=== PATIENT | female | born 2005 | race Two or more races ===

== ENCOUNTER 2024-06-17 12:55 | Observation (INO) ==
--- NOTE | 2024-06-17 13:07 | DR.SEIZA ---
HPI Time Seen Time Seen by Provider: 06/17/24 13:07 PMH PMH Past Medical History: Seizures Past Surgical History: Yes Surgical History: Tonsillectomy PE Vital Signs Vitals: Vital Signs Temperature 97.9 F Pulse Rate 86 Pulse Rate 87 Pulse Rate 93 Pulse Rate 97 Pulse Rate 104 Pulse Rate 93 Pulse Rate 95 Pulse Rate 111 Pulse Rate 111 Pulse Rate 115 Pulse Rate 111 Pulse Rate 119 Pulse Rate 105 Pulse Rate 118 Pulse Rate 118 Pulse Rate 136 Pulse Rate 140 Pulse Rate 143 Pulse Rate 146 Respiratory Rate 13 Respiratory Rate 13 Respiratory Rate 14 Respiratory Rate 16 Respiratory Rate 15 Respiratory Rate 17 Respiratory Rate 15 Respiratory Rate 17 Respiratory Rate 20 Respiratory Rate 15 Respiratory Rate 14 Respiratory Rate 15 Respiratory Rate 15 Respiratory Rate 15 Respiratory Rate 26 Respiratory Rate 20 Respiratory Rate 19 Respiratory Rate 22 Blood Pressure 112/62 Blood Pressure 137/89 Blood Pressure 137/89 Blood Pressure 141/93 Blood Pressure 115/72 Blood Pressure 115/72 Blood Pressure 133/69 Blood Pressure 113/59 Blood Pressure 128/68 Blood Pressure 128/65 O2 Sat by Pulse Oximetry 95 O2 Sat by Pulse Oximetry 95 O2 Sat by Pulse Oximetry 91 O2 Sat by Pulse Oximetry 92 O2 Sat by Pulse Oximetry 95 O2 Sat by Pulse Oximetry 98 O2 Sat by Pulse Oximetry 96 O2 Sat by Pulse Oximetry 84 O2 Sat by Pulse Oximetry 81 O2 Sat by Pulse Oximetry 77 O2 Sat by Pulse Oximetry 88 O2 Sat by Pulse Oximetry 86 O2 Sat by Pulse Oximetry 86 O2 Sat by Pulse Oximetry 86 O2 Sat by Pulse Oximetry 95 O2 Sat by Pulse Oximetry 93 ROR Labs Reviewed 06/17/24 13:48 06/17/24 13:48 Laboratory: WBC 11.0 X10^3/uL (3.6-10.0) H 06/17/24 13:48 RBC 4.91 X10^6/uL (3.5-5.4) 06/17/24 13:48 Hgb 13.9 g/dL (12.0-16.0) 06/17/24 13:48 Hct 40.9 % (36.0-47.0) 06/17/24 13:48 MCV 83.2 fL (80.0-100.0) 06/17/24 13:48 MCH 28.3 pg (27.0-34.0) 06/17/24 13:48 MCHC 34.0 g/dL (33.0-35.0) 06/17/24 13:48 RDW 14.2 % (11.6-16.5) 06/17/24 13:48 Plt Count 293 X10^3/uL (150.0-450.0) 06/17/24 13:48 MPV 10.0 fL (7.4-11.0) 06/17/24 13:48 Neut % (Auto) 76.0 % (42.0-75.0) H 06/17/24 13:48 Lymph % (Auto) 13.4 % (21.0-51.0) L 06/17/24 13:48 [place] % (Auto) 10.1 % (0.0-13.0) 06/17/24 13:48 Eos % (Auto) 0.2 % (0.9-2.9) L 06/17/24 13:48 Baso % (Auto) 0.3 % (0.2-1.0) 06/17/24 13:48 Neut # (Auto) 8.4 x10^3/uL (2.2-4.8) H 06/17/24 13:48 Lymph # (Auto) 1.5 X10^3/uL (1.3-2.9) 06/17/24 13:48 [place] # (Auto) 1.1 x10^3/uL (0.3-0.8) H 06/17/24 13:48 Eos # (Auto) 0.0 x10^3/uL (0.0-0.2) 06/17/24 13:48 Baso # (Auto) 0.0 X10^3/uL (0.0-0.1) 06/17/24 13:48 Absolute Nucleated RBC 0.0 /100WBC 06/17/24 13:48 Sodium 143 mmol/L (136-145) 06/17/24 13:48 Corrected Sodium 143 mmol/L (136-145) 06/17/24 13:48 Potassium 3.3 mmol/L (3.5-5.1) L 06/17/24 13:48 Chloride 104 mmol/L (98-107) 06/17/24 13:48 Carbon Dioxide 26.4 mmol/L (21-32) 06/17/24 13:48 BUN 17 mg/dL (7-18) 06/17/24 13:48 Creatinine 1.32 mg/dL (0.55-1.02) H 06/17/24 13:48 Est GFR (MDRD) Af Amer > 60 (>60) 06/17/24 13:48 Est GFR (MDRD) Non-Af 55 (>60) L 06/17/24 13:48 Glucose 113 mg/dL (65-99) H 06/17/24 13:48 Lactic Acid 0.6 mmol/L (0.4-2.0) 06/17/24 16:30 Calcium 9.2 mg/dL (8.5-10.1) 06/17/24 13:48 Corrected Calcium TNP 06/17/24 13:48 Total Bilirubin 0.30 mg/dL (0.2-1.0) 06/17/24 13:48 AST 23 Units/L (15-37) 06/17/24 13:48 ALT 32 Units/L (12-78) 06/17/24 13:48 Alkaline Phosphatase 75 Units/L (46-116) 06/17/24 13:48 Total Protein 8.4 g/dL (6.4-8.2) H 06/17/24 13:48 Albumin 4.1 g/dL (3.4-5.0) 06/17/24 13:48 Globulin 4.3 g/dL (2.5-4.5) 06/17/24 13:48 Albumin/Globulin Ratio 1.0 Ratio (1.1-2.1) L 06/17/24 13:48 Amylase 37 Units/L (25-115) 06/17/24 13:48 Lipase 49 Units/L (16-77) 06/17/24 13:48 Specimen Type Catherized urine 06/17/24 15:08 Urine Color Yellow (YELLOW) 06/17/24 15:08 Urine Appearance Hazy (CLEAR) 06/17/24 15:08 Urine pH 6.0 (5.0 - 8.0) 06/17/24 15:08 Ur Specific [place] 1.020 (1.000-1.030) 06/17/24 15:08 Urine Protein 2+ (NEGATIVE) 06/17/24 15:08 Urine Glucose (UA) Negative (NEGATIVE) 06/17/24 15:08 Urine Ketones 1+ (NEGATIVE) 06/17/24 15:08 Urine Blood 1+ (NEGATIVE) 06/17/24 15:08 Urine Nitrite Negative (NEGATIVE) 06/17/24 15:08 Urine Bilirubin Negative (NEGATIVE) 06/17/24 15:08 Urine Urobilinogen Normal (NORMAL) 06/17/24 15:08 Ur Leukocyte Esterase 1+ (NEGATIVE) 06/17/24 15:08 Urine RBC 0-2 /HPF (0-3) 06/17/24 15:08 Urine WBC 3-5 /HPF (0-5) 06/17/24 15:08 Ur Squamous Epith Cells Few /HPF (NEGATIVE) 06/17/24 15:08 Urine Bacteria Negative /HPF (NEGATIVE) 06/17/24 15:08 Urine Mucus Rare /HPF (NEGATIVE) 06/17/24 15:08 Ur Culture Indicated? No/not indicated 06/17/24 15:08 Gastric Fluid pH 3 06/17/24 13:25 Gastric Occult Blood Positive (NEGATIVE) A 06/17/24 13:25 Opioid Opioid Risk Tool Age (Azael box if 16-45): No History of Preadolescent Sexual Abuse: No Total: 0 Total Score Risk Category: Low Risk Copyright: Jorge AREVALO predicting aberrant behaviors Discharge Plan Discharge Plan Patient Disposition: 01 HOME, SELF-CARE Condition: Stable Prescriptions: No Action quetiapine 25 mg tablet 75 mg PO QPM lamotrigine 100 mg tablet 100 mg PO BID clonazepam 2 mg tablet,disintegrating 2 mg PO PRN PRN diazepam 12.5-15-17.5-20 mg kit 20 mg SD PRN PRN Fycompa 8 mg tablet 8 mg PO QPM clonazepam 0.5 mg tablet 0.5 mg PO BID Rx Instructions: 1 TABLET AT MIDDAY AND 1 TABLET AT NIGHT folic acid 1 mg tablet 1 mg PO QDAY clobazam 10 mg tablet 5 mg PO QAM hyoscyamine sulfate [Levsin/SL] 0.125 mg tablet, sublingual 0.125 mg sublingual TID PRNQty: 20 0RF ondansetron 4 mg tablet,disintegrating 4 mg PO Q8H PRNQty: 20 0RF Health Concerns: Post Hospitalization: new medications and changes needed to prevent readmission or further decline. Pt educated and given instructions on all concerns. Plan of Treatment: Continue with present treatment and follow up plan. Pt is to keep follow up appointment as instructed and take medications as ordered. Orders to Discharge Patient Discharge Orders: Transfer (Routine); Ordered 06/17/24 Ordered By: ROB LWARENCE Follow ups/Referrals Follow ups/Referrals: [facility],None [Primary Care Provider] - 3 days Instructions Stand Alone Forms: Post Hospital Follow Up Care
[2024-06-17] MEDS: ATIVAN INJ 2 MG VIAL IVP ONE (13:33)
[2024-06-17] MEDS: PROTONIX INJ 40 MG VIAL IVP ONE (13:33)
[2024-06-17] MEDS: ZOFRAN INJ 4 MG VIAL IVP ONE (13:34)
[2024-06-17] MEDS: NS 1,000 ML IV 1,000 ML IV ONE (13:34)
[2024-06-17 14:11] LABS: GASTRIC OCCULT BLOOD POSITIVE (NEGATIVE); PH,GASTRIC FLUID 3
[2024-06-17 14:24] LABS: BASOPHILS % (AUTO) 0.3 % (0.2-1.0); EOSINOPHILS % (AUTO) 0.2 % (0.9-2.9); HEMATOCRIT 40.9 % (36.0-47.0); HEMOGLOBIN 13.9 g/dL (12.0-16.0); LYMPHOCYTES # (AUTO) 1.5 X10^3/uL (1.3-2.9); LYMPHOCYTES % (AUTO) 13.4 % (21.0-51.0); MEAN CORPUSCULAR HEMOGLOBIN 28.3 pg (27.0-34.0); MEAN CORPUSCULAR VOLUME 83.2 fL (80.0-100.0); MONOCYTES # (AUTO) 1.1 x10^3/uL (0.3-0.8); MONOCYTES % (AUTO) 10.1 % (0.0-13.0); NEUTROPHILS # (AUTO) 8.4 x10^3/uL (2.2-4.8); PLATELET COUNT 293 X10^3/uL (150.0-450.0); RED BLOOD COUNT 4.91 X10^6/uL (3.5-5.4); RED CELL DISTRIBUTION WIDTH 14.2 % (11.6-16.5)
[2024-06-17 14:44] LABS: ALANINE AMINOTRANSFERASE 32 Units/L (12-78); ALBUMIN 4.1 g/dL (3.4-5.0); ALKALINE PHOSPHATASE 75 Units/L (46-116); AMYLASE 37 Units/L (25-115); ASPARTATE AMINO TRANSFERASE 23 Units/L (15-37); BLOOD UREA NITROGEN 17 mg/dL (7-18); CALCIUM 9.2 mg/dL (8.5-10.1); CARBON DIOXIDE 26.4 mmol/L (21-32); CHLORIDE 104 mmol/L (98-107); COR NA(FOR HYPERGLY) 143 mmol/L (136-145); CREATININE 1.32 mg/dL (0.55-1.02); GLUCOSE 113 mg/dL (65-99); LIPASE 49 Units/L (16-77); POTASSIUM 3.3 mmol/L (3.5-5.1); SODIUM 143 mmol/L (136-145); TOTAL PROTEIN 8.4 g/dL (6.4-8.2); eGFR NON BLACK RACES 55 (>60)
--- NOTE | 2024-06-17 15:08 | CT ---
EXAMINATION:ABDOMEN/PELVIS W/O CONHISTORY:ABD PAIN; .COMPARISON:None.TECHNIQUE:Unenhanced axial images were obtained through the abdomen and pelvis using renal stone protocol. Reformatted images were obtained as well. Lack of oral and IV contrast limits diagnostic sensitivityThe above CT scan was done with automated exposure control and the mA and kV was adjusted to obtain quality images according to patient size.FINDINGS:Lung bases: No acute findings.Liver: No acute finding or focal lesionGB/Biliary: No gallstones or dilated ductsSpleen: Normal size and densityPancreas: No acute findings. No pseudocyst or dilated ductAdrenal Glands: No massKidneys: No obstructing stone, hydronephrosis or solid lesionAbdominal aorta: Tapers normallyRetroperitoneum: No pathologically enlarged lymph nodesBowel: No thickened or dilated loops of bowel, free fluid, free air, pneumatosis or abscess. Large to moderate stool. Appendix not seen. No CT evidence for appendicitis or obstruction.Bladder/: Ureters and bladder unremarkable. Uterus and adnexal structures unremarkable for age. No pelvic or adnexal mass noted. Heterogeneous uterus which may represent a fibroid uterus.Osseous: Unremarkable with no acute finding or bony lesion.IMPRESSION:No acute intra-abdominal or intrapelvic process.No CT evidence for obstruction, appendicitis or obstructing stone. Constipation.THIS IS AN ELECTRONICALLY VERIFIED FINAL [id number]/2024 3:04 PM - Electronically signed by Fab Burns MD
[2024-06-17 15:21] LABS: BILIRUBIN,URINE NEGATIVE (NEGATIVE); BLOOD/HEMOGLOBIN,URINE 1+ (NEGATIVE); GLUCOSE, URINE NEGATIVE (NEGATIVE); KETONES,URINE 1+ (NEGATIVE); LEUKOCYTE ESTERASE ,URINE 1+ (NEGATIVE); NITRITES,URINE NEGATIVE (NEGATIVE); PROTEIN,URINE 2+ (NEGATIVE); UROBILINOGEN,URINE NORMAL (NORMAL)
[2024-06-17 15:28] LABS: APPEARANCE,URINE HAZY (CLEAR); COLOR,URINE YELLOW (YELLOW)
[2024-06-17 15:29] LABS: BACTERIA,URINE NEGATIVE /HPF (NEGATIVE); RBC,URINE 0-2 /HPF (0-3); SQUAMOUS EPITHELIAL CELL,UR FEW /HPF (NEGATIVE)
[2024-06-17] MEDS: ROCEPHIN VIAL 1 GRAM 1 G in NS 100 ML IV 100 ML IV ONE (17:27)
[2024-06-17] MEDS ORDERED: ATIVAN INJ 2 MG VIAL IVP PRN (17:31)
[2024-06-17] MEDS ORDERED: ZOFRAN INJ 4 MG VIAL IVP PRN ×2 (18:11→19:42)
[2024-06-17] MEDS: NS 1,000 ML IV 1,000 ML IV SCH (20:05)
[2024-06-17] MEDS: ATIVAN INJ 2 MG VIAL IVP PRN (20:50)
[2024-06-17] MEDS: PROTONIX INJ 40 MG VIAL 80 MG in NS 100 ML IV 80 ML IV SCH (21:00)
[2024-06-17] MEDS: COLACE CAP 100 MG PO SCH (21:02)
[2024-06-18 04:07] LABS: BASOPHILS % (AUTO) 0.2 % (0.2-1.0); EOSINOPHILS # (AUTO) 0.1 x10^3/uL (0.0-0.2); EOSINOPHILS % (AUTO) 0.7 % (0.9-2.9); HEMATOCRIT 35.9 % (36.0-47.0); LYMPHOCYTES # (AUTO) 3.6 X10^3/uL (1.3-2.9); LYMPHOCYTES % (AUTO) 35.4 % (21.0-51.0); MEAN CORPUSCULAR HEMOGLOBIN 27.4 pg (27.0-34.0); MEAN CORPUSCULAR VOLUME 82.8 fL (80.0-100.0); MEAN PLATELET VOLUME 9.2 fL (7.4-11.0); MONOCYTES # (AUTO) 1.3 x10^3/uL (0.3-0.8); MONOCYTES % (AUTO) 12.6 % (0.0-13.0); NEUTROPHILS # (AUTO) 5.2 x10^3/uL (2.2-4.8); NEUTROPHILS % (AUTO) 51.1 % (42.0-75.0); PLATELET COUNT 238 X10^3/uL (150.0-450.0); RED BLOOD COUNT 4.34 X10^6/uL (3.5-5.4); RED CELL DISTRIBUTION WIDTH 13.9 % (11.6-16.5); WHITE BLOOD COUNT 10.1 X10^3/uL (3.6-10.0)
[2024-06-18 04:17] LABS: ALANINE AMINOTRANSFERASE 24 Units/L (12-78); ALBUMIN 3.4 g/dL (3.4-5.0); ALKALINE PHOSPHATASE 63 Units/L (46-116); ASPARTATE AMINO TRANSFERASE 24 Units/L (15-37); BLOOD UREA NITROGEN 13 mg/dL (7-18); CARBON DIOXIDE 27.3 mmol/L (21-32); CHLORIDE 105 mmol/L (98-107); CREATININE 0.98 mg/dL (0.55-1.02); GLUCOSE 78 mg/dL (65-99); POTASSIUM 3.1 mmol/L (3.5-5.1); SODIUM 141 mmol/L (136-145); eGFR NON BLACK RACES > 60 (>60)
[2024-06-18 04:18] LABS: HEMOGLOBIN 11.9 g/dL (12.0-16.0)
[2024-06-18] MEDS: NS 1,000 ML IV 1,000 ML ONE (04:39)
[2024-06-18] MEDS: ATIVAN INJ 2 MG VIAL ONE (04:40)
[2024-06-18] MEDS: ZOFRAN INJ 4 MG VIAL ONE (04:41)
[2024-06-18] MEDS: PROTONIX INJ 40 MG VIAL ONE (04:41)
[2024-06-18] MEDS ORDERED: CONSULT PHARMACY - POTASSIUM & MAGNESIUM XX SCH (05:00)
[2024-06-18] MEDS: DIPRIVAN VIAL 20 ML ONE (09:28)
[2024-06-18] MEDS: K-DUR TAB 20 MEQ PO SCH (13:14)
[2024-06-18] MEDS: MAG-OX TAB PO SCH (13:14)
[2024-06-18] MEDS: LAMICTAL TAB 100 MG PO SCH (13:23)
[2024-06-18] MEDS: CARAFATE PO SCH (13:26)
[2024-06-18] MEDS: K-DUR TAB 20 MEQ PO ONE (14:58)
--- NOTE | 2024-06-18 16:48 | DR.H&P ---
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 The patient has developed worsening constipation of the last few days with associated nausea vomiting and because of that she has not been able to take her antiepileptic pills. After getting to the ER today she vomited coffee-ground emesis and a Gastroccult was done that showed it was positive for blood. Because of this we elected to go ahead and admit the patient and consult general surgery for EGD along with starting IV Protonix twice daily and subset enemas to help relieve the constipation. Will follow-up with general surgery recommendations and EGD results. Will also plan on doing a colonoscopy after we get the patient's spouse plans. We will use as needed IV Valium or Ativan for breakthrough seizures in the meantime. 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, cerebral palsy, chronic failure to thrive chronic bedbound chronic mentally handicapped Past Surgical History Surgical History: Tonsillectomy and Other Family History Family Medical History: Diabetes Mellitus, Heart Failure and Hypertension Social History Does any household member use tobacco: No Alcohol Use: None Drug Use: None Medications Home Medications: Home Medications Medication Instructions Recorded Confirmed Type clobazam 10 mg tablet 5 mg PO QAM 06/16/24 06/17/24 History clonazepam 0.5 mg tablet 0.5 mg PO BID 06/16/24 06/17/24 History clonazepam 2 mg disintegrating 2 mg PO PRN PRN 06/16/24 06/17/24 History tablet diazepam 12.5 mg-15 mg-17.5 mg-20 20 mg NC PRN PRN 06/16/24 06/17/24 History mg rectal kit folic acid 1 mg tablet 1 mg PO QDAY 06/16/24 06/17/24 History lamotrigine 100 mg tablet 100 mg PO BID 06/16/24 06/17/24 History perampanel 8 mg tablet (Fycompa) 8 mg PO QPM 06/16/24 06/17/24 History quetiapine 25 mg tablet 75 mg PO QPM 06/16/24 06/17/24 History Allergies Allergies Allergy/AdvReac Type Severity Reaction Status Date / Time No Known Allergies Allergy Verified 06/16/24 01:12 Labs 06/18/24 03:47 06/18/24 03:47 Labs: Laboratory WBC 10.1 X10^3/uL (3.6-10.0) H 06/18/24 03:47 RBC 4.34 X10^6/uL (3.5-5.4) 06/18/24 03:47 Hgb 11.9 g/dL (12.0-16.0) L D 06/18/24 03:47 Hct 35.9 % (36.0-47.0) L 06/18/24 03:47 MCV 82.8 fL (80.0-100.0) 06/18/24 03:47 MCH 27.4 pg (27.0-34.0) 06/18/24 03:47 MCHC 33.0 g/dL (33.0-35.0) 06/18/24 03:47 RDW 13.9 % (11.6-16.5) 06/18/24 03:47 Plt Count 238 X10^3/uL (150.0-450.0) 06/18/24 03:47 MPV 9.2 fL (7.4-11.0) 06/18/24 03:47 Neut % (Auto) 51.1 % (42.0-75.0) 06/18/24 03:47 Lymph % (Auto) 35.4 % (21.0-51.0) 06/18/24 03:47 [place] % (Auto) 12.6 % (0.0-13.0) 06/18/24 03:47 Eos % (Auto) 0.7 % (0.9-2.9) L 06/18/24 03:47 Baso % (Auto) 0.2 % (0.2-1.0) 06/18/24 03:47 Neut # (Auto) 5.2 x10^3/uL (2.2-4.8) H 06/18/24 03:47 Lymph # (Auto) 3.6 X10^3/uL (1.3-2.9) H 06/18/24 03:47 [place] # (Auto) 1.3 x10^3/uL (0.3-0.8) H 06/18/24 03:47 Eos # (Auto) 0.1 x10^3/uL (0.0-0.2) 06/18/24 03:47 Baso # (Auto) 0.0 X10^3/uL (0.0-0.1) 06/18/24 03:47 Absolute Nucleated RBC 0.0 /100WBC 06/18/24 03:47 Sodium 141 mmol/L (136-145) 06/18/24 03:47 Corrected Sodium TNP 06/18/24 03:47 Potassium 3.1 mmol/L (3.5-5.1) L 06/18/24 03:47 Chloride 105 mmol/L (98-107) 06/18/24 03:47 Carbon Dioxide 27.3 mmol/L (21-32) 06/18/24 03:47 BUN 13 mg/dL (7-18) 06/18/24 03:47 Creatinine 0.98 mg/dL (0.55-1.02) 06/18/24 03:47 Est GFR (MDRD) Af Amer > 60 (>60) 06/18/24 03:47 Est GFR (MDRD) Non-Af > 60 (>60) 06/18/24 03:47 Glucose 78 mg/dL (65-99) 06/18/24 03:47 Lactic Acid 0.6 mmol/L (0.4-2.0) 06/17/24 16:30 Calcium 8.0 mg/dL (8.5-10.1) L 06/18/24 03:47 Corrected Calcium TNP 06/18/24 03:47 Magnesium 1.8 mg/dL (2.0-2.9) L 06/18/24 03:47 Total Bilirubin 0.50 mg/dL (0.2-1.0) 06/18/24 03:47 AST 24 Units/L (15-37) 06/18/24 03:47 ALT 24 Units/L (12-78) 06/18/24 03:47 Alkaline Phosphatase 63 Units/L (46-116) 06/18/24 03:47 Total Protein 7.0 g/dL (6.4-8.2) 06/18/24 03:47 Albumin 3.4 g/dL (3.4-5.0) 06/18/24 03:47 Globulin 3.6 g/dL (2.5-4.5) 06/18/24 03:47 Albumin/Globulin Ratio 0.9 Ratio (1.1-2.1) L 06/18/24 03:47 Amylase 37 Units/L (25-115) 06/17/24 13:48 Lipase 49 Units/L (16-77) 06/17/24 13:48 Specimen Type Catherized urine 06/17/24 15:08 Urine Color Yellow (YELLOW) 06/17/24 15:08 Urine Appearance Hazy (CLEAR) 06/17/24 15:08 Urine pH 6.0 (5.0 - 8.0) 06/17/24 15:08 Ur Specific [place] 1.020 (1.000-1.030) 06/17/24 15:08 Urine Protein 2+ (NEGATIVE) 06/17/24 15:08 Urine Glucose (UA) Negative (NEGATIVE) 06/17/24 15:08 Urine Ketones 1+ (NEGATIVE) 06/17/24 15:08 Urine Blood 1+ (NEGATIVE) 06/17/24 15:08 Urine Nitrite Negative (NEGATIVE) 06/17/24 15:08 Urine Bilirubin Negative (NEGATIVE) 06/17/24 15:08 Urine Urobilinogen Normal (NORMAL) 06/17/24 15:08 Ur Leukocyte Esterase 1+ (NEGATIVE) 06/17/24 15:08 Urine RBC 0-2 /HPF (0-3) 06/17/24 15:08 Urine WBC 3-5 /HPF (0-5) 06/17/24 15:08 Ur Squamous Epith Cells Few /HPF (NEGATIVE) 06/17/24 15:08 Urine Bacteria Negative /HPF (NEGATIVE) 06/17/24 15:08 Urine Mucus Rare /HPF (NEGATIVE) 06/17/24 15:08 Ur Culture Indicated? No/not indicated 06/17/24 15:08 Gastric Fluid pH 3 06/17/24 13:25 Gastric Occult Blood Positive (NEGATIVE) A 10/28/24 13:25 Review of Systems Constitutional: Sweats and Weakness Eyes: No Symptoms Reported ENT: No Symptoms Reported Respiratory: No Symptoms Reported Cardiovascular: No Symptoms Reported Gastrointestinal: Nausea, Vomiting and Other (Coffee-ground emesis) Genitourinary: No Symptoms Reported Musculoskeletal: No Symptoms Reported Skin: No Symptoms Reported Neurological: Weakness, Incoordination, Confusion and Seizures Physical Exam Vital Signs: Vital Signs Temperature 98.2 F Temperature 97.5 F Temperature 97.7 F Temperature 97.5 F Temperature 97.5 F Temperature 97.5 F Temperature 97.1 F Pulse Rate [Right Brachial] 101 Pulse Rate [Right Brachial] 87 Pulse Rate [Right Brachial] 77 Pulse Rate [Right Brachial] 77 Pulse Rate [Right Brachial] 75 Pulse Rate [Right Brachial] 64 Pulse Rate [Right Brachial] 69 Pulse Rate 72 Respiratory Rate 21 Respiratory Rate 21 Respiratory Rate 19 Respiratory Rate 19 Respiratory Rate 20 Respiratory Rate 18 Respiratory Rate 18 Respiratory Rate 18 Blood Pressure [Right Arm] 103/52 Blood Pressure [Right Arm] 118/66 Blood Pressure [Right Arm] 130/79 Blood Pressure [Right Arm] 126/75 Blood Pressure [Right Arm] 135/87 Blood Pressure [Right Arm] 114/55 Blood Pressure [Right Arm] 118/60 Blood Pressure 113/58 O2 Sat by Pulse Oximetry 94 O2 Sat by Pulse Oximetry 99 O2 Sat by Pulse Oximetry 99 O2 Sat by Pulse Oximetry 99 O2 Sat by Pulse Oximetry 100 O2 Sat by Pulse Oximetry 100 O2 Sat by Pulse Oximetry 100 O2 Sat by Pulse Oximetry 97 Oriented: Not Oriented Eyes: Normal Ear: Normal Respiratory: Clear Throughout Cardiovascular: Normal Auscultation: Bowel Sounds: Decreased Palpation: Normal Skin: Normal Musculoskeletal: Normal Psychiatric: Other Mood Description: Calm Affect: Normal Speech Pattern: Appropriate Assessment/Plan (1) Cerebral palsy: Status: Acute Plan: Supportive care. (2) Nausea and vomiting in adult patient: Status: Acute Plan: IV Zofran as needed. (3) Angelman syndrome: Status: Acute (4) Coffee ground emesis: Status: Acute Plan: IV Protonix 40 mg IV twice daily. Consult general surgery for EGD. Avoid NSAIDs and blood thinners this time. (5) Epilepsy: Status: Acute Plan: We will plan on using Ativan 0.5 to 1 mg IV every 8-12 hours as needed for breakthrough seizures through the night. Hopefully after we get the patient's bowels moving to a soapsuds enemas we will resume her regular home antiepileptic meds if she can take them without getting nausea and vomiting. (6) Chronic constipation: Status: Acute Plan: Soapsuds enema this evening and will repeat x 1 if needed. Reevaluate tomorrow morning. 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 The patient may benefit from referral to gastroenterology next week given her current situation improved. Review H&P Reviewed: Yes Patient was examined?: Yes
--- NOTE | 2024-06-18 16:57 | PCM.PROG ---
Progress Note Progress Note for Day of Date of Exam: 06/18/24 Subjective Subjective: During rounds this morning I spoke with the patient's mother and she states that she has just recently fell back asleep but has been awake and alert through the night. She asked if we could resume her quetiapine at bedtime to help her sleep because she does not get that she does stay awake all night long. I informed mother that that would be fine we will be glad to get her medication resumed today along with her antiepileptic medication. She is scheduled to go for EGD around noon today and I see that Dr. Rosenbaum has already done the scope and it showed that she had erosive gastritis of the fundus and antrum but no ulcers and no active bleeds. She is currently still receiving IV Protonix 40 mg twice daily and which we will continue at this time. There is subset enemas that she received last night x 2 has not done a lot to help relieve her constipation so we will see what Dr. Rosenbaum orders to get a good bowel cleanse. He wants to advance her diet and let the erosive gastritis heal up some so we will plan on doing another subset this afternoon. Prior to that we will do a KUB and plan on repeating it tomorrow morning to see how, while with her constipation resolution. She is hypomagnesemic this morning as well as hypokalemic so we will initiate potassium replacement protocol and correct these abnormal electrolytes. Her dehydration has resolved since yesterday. I reviewed the CT scan of her abdomen pelvis when she was admitted yesterday and I see that showed constipation but no acute other problems. She did have a little low-grade fever last night and she is currently covered with IV Rocephin and because she does have some underlying infection somewhere. Urinalysis. It does not show that she has a urinary tract infection at this time. Repeat routine labs tomorrow morning. Past Medical Family Social History Allergies: Allergies No Known Allergies Allergy (Verified 06/16/24 01:12) Review of Systems ROS: No change since H&P Vital Signs and I&O's Vital Signs: Vital Signs Temperature 98.2 F Temperature 98.2 F Temperature 97.5 F Temperature 97.7 F Temperature 97.5 F Temperature 97.5 F Temperature 97.5 F Temperature 97.1 F Pulse Rate [Right Brachial] 101 Pulse Rate [Right Brachial] 101 Pulse Rate [Right Brachial] 87 Pulse Rate [Right Brachial] 77 Pulse Rate [Right Brachial] 77 Pulse Rate [Right Brachial] 75 Pulse Rate [Right Brachial] 64 Pulse Rate [Right Brachial] 69 Pulse Rate 72 Respiratory Rate 21 Respiratory Rate 21 Respiratory Rate 21 Respiratory Rate 19 Respiratory Rate 19 Respiratory Rate 20 Respiratory Rate 18 Respiratory Rate 18 Respiratory Rate 18 Blood Pressure [Right Arm] 103/52 Blood Pressure [Right Arm] 103/52 Blood Pressure [Right Arm] 118/66 Blood Pressure [Right Arm] 130/79 Blood Pressure [Right Arm] 126/75 Blood Pressure [Right Arm] 135/87 Blood Pressure [Right Arm] 114/55 Blood Pressure [Right Arm] 118/60 Blood Pressure 113/58 O2 Sat by Pulse Oximetry 94 O2 Sat by Pulse Oximetry 94 O2 Sat by Pulse Oximetry 99 O2 Sat by Pulse Oximetry 99 O2 Sat by Pulse Oximetry 99 O2 Sat by Pulse Oximetry 100 O2 Sat by Pulse Oximetry 100 O2 Sat by Pulse Oximetry 100 O2 Sat by Pulse Oximetry 97 Intake and Output: Intake & Output 06/16/24 06/17/24 06/18/24 06/19/24 11:59 11:59 11:59 11:59 Intake Total 217 / 217 600 / 600 Balance 217 / 217 600 / 600 Physical Exam Oriented: Not Oriented Eyes: Normal Ear: Normal Respiratory: Normal Cardiovascular: Normal Auscultation: Bowel Sounds: Decreased Skin: Normal Musculoskeletal: Normal Psychiatric: Other Mood Description: Calm Affect: Normal Speech Pattern: Appropriate Laboratory and Diagnostics 06/18/24 03:47 06/18/24 03:47 Labs: Laboratory WBC 10.1 X10^3/uL (3.6-10.0) H 06/18/24 03:47 RBC 4.34 X10^6/uL (3.5-5.4) 06/18/24 03:47 Hgb 11.9 g/dL (12.0-16.0) L D 06/18/24 03:47 Hct 35.9 % (36.0-47.0) L 06/18/24 03:47 MCV 82.8 fL (80.0-100.0) 06/18/24 03:47 MCH 27.4 pg (27.0-34.0) 06/18/24 03:47 MCHC 33.0 g/dL (33.0-35.0) 06/18/24 03:47 RDW 13.9 % (11.6-16.5) 06/18/24 03:47 Plt Count 238 X10^3/uL (150.0-450.0) 06/18/24 03:47 MPV 9.2 fL (7.4-11.0) 06/18/24 03:47 Neut % (Auto) 51.1 % (42.0-75.0) 06/18/24 03:47 Lymph % (Auto) 35.4 % (21.0-51.0) 06/18/24 03:47 Gilmer % (Auto) 12.6 % (0.0-13.0) 06/18/24 03:47 Eos % (Auto) 0.7 % (0.9-2.9) L 06/18/24 03:47 Baso % (Auto) 0.2 % (0.2-1.0) 06/18/24 03:47 Neut # (Auto) 5.2 x10^3/uL (2.2-4.8) H 06/18/24 03:47 Lymph # (Auto) 3.6 X10^3/uL (1.3-2.9) H 06/18/24 03:47 Gilmer # (Auto) 1.3 x10^3/uL (0.3-0.8) H 06/18/24 03:47 Eos # (Auto) 0.1 x10^3/uL (0.0-0.2) 06/18/24 03:47 Baso # (Auto) 0.0 X10^3/uL (0.0-0.1) 06/18/24 03:47 Absolute Nucleated RBC 0.0 /100WBC 06/18/24 03:47 Sodium 141 mmol/L (136-145) 06/18/24 03:47 Corrected Sodium TNP 06/18/24 03:47 Potassium 3.1 mmol/L (3.5-5.1) L 06/18/24 03:47 Chloride 105 mmol/L (98-107) 06/18/24 03:47 Carbon Dioxide 27.3 mmol/L (21-32) 06/18/24 03:47 BUN 13 mg/dL (7-18) 06/18/24 03:47 Creatinine 0.98 mg/dL (0.55-1.02) 06/18/24 03:47 Est GFR (MDRD) Af Amer > 60 (>60) 06/18/24 03:47 Est GFR (MDRD) Non-Af > 60 (>60) 06/18/24 03:47 Glucose 78 mg/dL (65-99) 06/18/24 03:47 Lactic Acid 0.6 mmol/L (0.4-2.0) 06/17/24 16:30 Calcium 8.0 mg/dL (8.5-10.1) L 06/18/24 03:47 Corrected Calcium TNP 06/18/24 03:47 Magnesium 1.8 mg/dL (2.0-2.9) L 06/18/24 03:47 Total Bilirubin 0.50 mg/dL (0.2-1.0) 06/18/24 03:47 AST 24 Units/L (15-37) 06/18/24 03:47 ALT 24 Units/L (12-78) 06/18/24 03:47 Alkaline Phosphatase 63 Units/L (46-116) 06/18/24 03:47 Total Protein 7.0 g/dL (6.4-8.2) 06/18/24 03:47 Albumin 3.4 g/dL (3.4-5.0) 06/18/24 03:47 Globulin 3.6 g/dL (2.5-4.5) 06/18/24 03:47 Albumin/Globulin Ratio 0.9 Ratio (1.1-2.1) L 06/18/24 03:47 Amylase 37 Units/L (25-115) 06/17/24 13:48 Lipase 49 Units/L (16-77) 06/17/24 13:48 Specimen Type Catherized urine 06/17/24 15:08 Urine Color Yellow (YELLOW) 06/17/24 15:08 Urine Appearance Hazy (CLEAR) 06/17/24 15:08 Urine pH 6.0 (5.0 - 8.0) 06/17/24 15:08 Ur Specific Garrison 1.020 (1.000-1.030) 06/17/24 15:08 Urine Protein 2+ (NEGATIVE) 06/17/24 15:08 Urine Glucose (UA) Negative (NEGATIVE) 06/17/24 15:08 Urine Ketones 1+ (NEGATIVE) 06/17/24 15:08 Urine Blood 1+ (NEGATIVE) 06/17/24 15:08 Urine Nitrite Negative (NEGATIVE) 06/17/24 15:08 Urine Bilirubin Negative (NEGATIVE) 06/17/24 15:08 Urine Urobilinogen Normal (NORMAL) 06/17/24 15:08 Ur Leukocyte Esterase 1+ (NEGATIVE) 06/17/24 15:08 Urine RBC 0-2 /HPF (0-3) 06/17/24 15:08 Urine WBC 3-5 /HPF (0-5) 06/17/24 15:08 Ur Squamous Epith Cells Few /HPF (NEGATIVE) 06/17/24 15:08 Urine Bacteria Negative /HPF (NEGATIVE) 06/17/24 15:08 Urine Mucus Rare /HPF (NEGATIVE) 06/17/24 15:08 Ur Culture Indicated? No/not indicated 06/17/24 15:08 Gastric Fluid pH 3 06/17/24 13:25 Gastric Occult Blood Positive (NEGATIVE) A 06/17/24 13:25 Radiology Reviewed: Yes Plan (1) Cerebral palsy: Status: Acute Plan: Supportive care. (2) Nausea and vomiting in adult patient: Status: Acute Plan: IV Zofran as needed. (3) Angelman syndrome: Status: Acute (4) Coffee ground emesis: Status: Resolved Narrative Support Text: No further coffee-ground emesis since admission. Plan: IV Protonix 40 mg IV twice daily. Consult general surgery for EGD. Avoid NSAIDs and blood thinners this time. (5) Epilepsy: Status: Acute Plan: We will plan on using Ativan 0.5 to 1 mg IV every 8-12 hours as needed for breakthrough seizures through the night. Hopefully after we get the patient's bowels moving to a soapsuds enemas we will resume her regular home antiepileptic meds if she can take them without getting nausea and vomiting. (6) Chronic constipation: Status: Acute Plan: Soapsuds enema this evening and will repeat x 1 if needed. Reevaluate tomorrow morning. 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 The patient may benefit from referral to gastroenterology next week given her current situation improved. (8) Hypokalemia: Status: Acute Plan: Initiate potassium replacement protocol. (9) Hypomagnesemia: Status: Acute Plan: With magnesium oxide or magnesium sulfate if needed. (10) Dehydration: Status: Resolved Plan: Continue slow IV hydration.
--- NOTE | 2024-06-18 17:56 | RAD ---
EXAM:KUBHISTORY:Constipation and abdominal discomfortCOMPARISON:CT exam June 17, 2024TECHNIQUE:Abdominal KUB one-viewFINDINGS:There is a moderate volume of stool noted in the transverse and descending portions of the colon. Mildly distended small bowel loop in the left upper abdomen. No gross free air.IMPRESSION:Moderate volume of colonic stool suggests constipation. No sign of bowel obstruction or gross free air.THIS IS AN ELECTRONICALLY VERIFIED FINAL [id number] 5:53 PM - Electronically signed by Shemar Gibbs MD
[2024-06-18] MEDS: PROTONIX INJ 40 MG VIAL IVP SCH (20:32)
[2024-06-18] MEDS: SEROquel TAB 25 mg PO SCH (20:34)
[2024-06-18] MEDS: PATIENT'S HOME MEDICATION PO SCH ×2 (23:04→23:05)
[2024-06-19 06:21] LABS: BASOPHILS % (AUTO) 0.3 % (0.2-1.0); EOSINOPHILS # (AUTO) 0.2 x10^3/uL (0.0-0.2); EOSINOPHILS % (AUTO) 2.4 % (0.9-2.9); HEMATOCRIT 39.4 % (36.0-47.0); HEMOGLOBIN 13.2 g/dL (12.0-16.0); LYMPHOCYTES # (AUTO) 2.9 X10^3/uL (1.3-2.9); MEAN CORPUSCULAR HEMOGLOBIN 28.2 pg (27.0-34.0); MEAN CORPUSCULAR HGB CONC 33.4 g/dL (33.0-35.0); MEAN CORPUSCULAR VOLUME 84.4 fL (80.0-100.0); MEAN PLATELET VOLUME 9.8 fL (7.4-11.0); MONOCYTES # (AUTO) 0.9 x10^3/uL (0.3-0.8); MONOCYTES % (AUTO) 10.5 % (0.0-13.0); NEUTROPHILS # (AUTO) 4.9 x10^3/uL (2.2-4.8); NEUTROPHILS % (AUTO) 54.8 % (42.0-75.0); PLATELET COUNT 206 X10^3/uL (150.0-450.0); RED BLOOD COUNT 4.67 X10^6/uL (3.5-5.4); WHITE BLOOD COUNT 8.9 X10^3/uL (3.6-10.0)
[2024-06-19 06:35] LABS: ALANINE AMINOTRANSFERASE 23 Units/L (12-78); ALBUMIN 3.2 g/dL (3.4-5.0); ALKALINE PHOSPHATASE 63 Units/L (46-116); ASPARTATE AMINO TRANSFERASE 25 Units/L (15-37); BLOOD UREA NITROGEN 4 mg/dL (7-18); CALCIUM 8.3 mg/dL (8.5-10.1); CARBON DIOXIDE 27.5 mmol/L (21-32); CHLORIDE 111 mmol/L (98-107); COR CA(FOR HYPOALB) 8.9 mg/dL (8.5-10.1); CREATININE 0.77 mg/dL (0.55-1.02); GLUCOSE 68 mg/dL (65-99); POTASSIUM 3.3 mmol/L (3.5-5.1); SODIUM 146 mmol/L (136-145); TOTAL PROTEIN 6.9 g/dL (6.4-8.2); eGFR NON BLACK RACES > 60 (>60)
[2024-06-19] MEDS: NS 1,000 ML IV 1,000 ML ONE (07:31)
[2024-06-19] MEDS: MAG-OX TAB ONE (07:31)
--- NOTE | 2024-06-19 07:33 | RAD ---
EXAM:KUBHISTORY:ConstipationCOMPARISON: .br.br.br.br.br.br nonspecific and nonobstructive. No abnormal masses or abnormal calcifications are identified. Moderate stool is present slightly decreased from the prior examination. Regional skeleton is intact.IMPRESSION:Unremarkable KUBTHIS IS AN ELECTRONICALLY VERIFIED FINAL [id number] 7:30 AM - Electronically signed by Fletcher Swan MD
[2024-06-19] MEDS: PATIENT'S HOME MEDICATION PO SCH (08:32)
[2024-06-19] MEDS: SUPREP BOWEL PREP KIT PO SCH (13:57)
[2024-06-19] MEDS: SUPREP BOWEL PREP KIT PO ONE (14:08)
[2024-06-19] MEDS: CEREBYX IV SCH (20:59)
[2024-06-19] MEDS: NS IV SCH (20:59)
[2024-06-19 21:09] VITALS: BMI 31.1
[2024-06-19] MEDS: ATIVAN INJ 2 MG VIAL IVP PRN (23:36)
[2024-06-20] MEDS: HIBICLENS WASH EXT ONE (04:38)
[2024-06-20] MEDS: NOZIN NASAL SANITIZER TP ONE (05:06)
[2024-06-20 06:34] LABS: BASOPHILS % (AUTO) 0.5 % (0.2-1.0); EOSINOPHILS # (AUTO) 0.2 x10^3/uL (0.0-0.2); EOSINOPHILS % (AUTO) 2.6 % (0.9-2.9); HEMATOCRIT 36.1 % (36.0-47.0); HEMOGLOBIN 11.8 g/dL (12.0-16.0); LYMPHOCYTES # (AUTO) 3.3 X10^3/uL (1.3-2.9); LYMPHOCYTES % (AUTO) 44.3 % (21.0-51.0); MEAN CORPUSCULAR HEMOGLOBIN 27.3 pg (27.0-34.0); MEAN CORPUSCULAR HGB CONC 32.7 g/dL (33.0-35.0); MEAN CORPUSCULAR VOLUME 83.5 fL (80.0-100.0); MEAN PLATELET VOLUME 10.6 fL (7.4-11.0); MONOCYTES # (AUTO) 0.8 x10^3/uL (0.3-0.8); MONOCYTES % (AUTO) 10.9 % (0.0-13.0); NEUTROPHILS # (AUTO) 3.1 x10^3/uL (2.2-4.8); NEUTROPHILS % (AUTO) 41.7 % (42.0-75.0); PLATELET COUNT 227 X10^3/uL (150.0-450.0); RED BLOOD COUNT 4.33 X10^6/uL (3.5-5.4); WHITE BLOOD COUNT 7.5 X10^3/uL (3.6-10.0)
[2024-06-20 07:07] LABS: ALANINE AMINOTRANSFERASE 23 Units/L (12-78); ALKALINE PHOSPHATASE 59 Units/L (46-116); ASPARTATE AMINO TRANSFERASE 21 Units/L (15-37); BLOOD UREA NITROGEN 2 mg/dL (7-18); CHLORIDE 112 mmol/L (98-107); COR CA(FOR HYPOALB) 8.8 mg/dL (8.5-10.1); CREATININE 0.78 mg/dL (0.55-1.02); GLUCOSE 78 mg/dL (65-99); POTASSIUM 3.5 mmol/L (3.5-5.1); SODIUM 149 mmol/L (136-145); TOTAL PROTEIN 6.4 g/dL (6.4-8.2); eGFR NON BLACK RACES > 60 (>60)
[2024-06-20] MEDS ORDERED: CEREBYX INJ IVP SCH (09:00)
[2024-06-20] MEDS ORDERED: NS 50 ML IV 50 ML IV ONE (10:30)
[2024-06-20] MEDS: NOZIN NASAL SANITIZER TP SCH (10:36)
[2024-06-20] MEDS: NS IV SCH (10:52)
[2024-06-20] MEDS: CEREBYX IV SCH (10:52)
[2024-06-20] MEDS: NS 500 ML IV 500 ML IV ONE (13:57)
[2024-06-20] MEDS: DIPRIVAN VIAL 20 ML ONE (14:21)
[2024-06-20] MEDS ORDERED: ATIVAN INJ 2 MG VIAL IVP ONE (17:30)
[2024-06-21 06:05] LABS: BASOPHILS % (AUTO) 0.4 % (0.2-1.0); EOSINOPHILS # (AUTO) 0.2 x10^3/uL (0.0-0.2); EOSINOPHILS % (AUTO) 2.6 % (0.9-2.9); HEMATOCRIT 38.7 % (36.0-47.0); HEMOGLOBIN 13.1 g/dL (12.0-16.0); LYMPHOCYTES # (AUTO) 2.7 X10^3/uL (1.3-2.9); LYMPHOCYTES % (AUTO) 32.8 % (21.0-51.0); MEAN CORPUSCULAR HEMOGLOBIN 28.3 pg (27.0-34.0); MEAN CORPUSCULAR HGB CONC 33.8 g/dL (33.0-35.0); MEAN CORPUSCULAR VOLUME 83.9 fL (80.0-100.0); MEAN PLATELET VOLUME 9.7 fL (7.4-11.0); MONOCYTES # (AUTO) 0.8 x10^3/uL (0.3-0.8); MONOCYTES % (AUTO) 9.5 % (0.0-13.0); NEUTROPHILS # (AUTO) 4.5 x10^3/uL (2.2-4.8); NEUTROPHILS % (AUTO) 54.7 % (42.0-75.0); PLATELET COUNT 223 X10^3/uL (150.0-450.0); RED BLOOD COUNT 4.61 X10^6/uL (3.5-5.4); WHITE BLOOD COUNT 8.2 X10^3/uL (3.6-10.0)
[2024-06-21 06:10] LABS: ALANINE AMINOTRANSFERASE 23 Units/L (12-78); ALBUMIN 3.1 g/dL (3.4-5.0); ALKALINE PHOSPHATASE 71 Units/L (46-116); ASPARTATE AMINO TRANSFERASE 18 Units/L (15-37); BLOOD UREA NITROGEN 6 mg/dL (7-18); CALCIUM 8.4 mg/dL (8.5-10.1); CARBON DIOXIDE 28.9 mmol/L (21-32); CHLORIDE 110 mmol/L (98-107); COR CA(FOR HYPOALB) 9.1 mg/dL (8.5-10.1); CREATININE 0.85 mg/dL (0.55-1.02); GLUCOSE 84 mg/dL (65-99); POTASSIUM 3.8 mmol/L (3.5-5.1); SODIUM 146 mmol/L (136-145); TOTAL PROTEIN 6.8 g/dL (6.4-8.2); eGFR NON BLACK RACES > 60 (>60)
[2024-06-21] MEDS: DILANTIN CAP 100 MG EXT REL PO SCH (08:51)
[2024-06-21 11:03] VITALS: BP 164/88; PULSE 84; RESP 18; TEMP 96.5; O2SAT 97
== END 2024-06-21 10:45 | disposition home or self-care (01) ==
LOC: ER 12:55 → MED/SURG 12:55
PROVIDERS: ADMIT Family Medicine; ATTEND Family Medicine